=== PATIENT | male | born 1940 | race Caucasian/White ===

== ENCOUNTER 2025-03-09 09:31 | Outpatient (AMB) | payer MEDICARE, OTHER, SELFPAY ==
--- NOTE | 2025-03-09 09:43 | MHC.OFFVIS ---
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 No new issues. He is presenting with management concerns for depression and anxiety, potentially linked to cognitive impairment. He reports persistent memory issues, forgetfulness, pervasive tiredness, and a lack of energy, spending most of his time watching television. He has not been partaking in regular physical activities except for using a pedal hardwood flooring specialist. The patient describes feelings of depression, characterized by a low mood and reduced interest in previous activities, alongside episodes of anxiety, including feelings of fear without a specified trigger. He denies any new problems with sleep or physical health issues and confirms the absence of any new wounds. The patient's current medication regimen includes sertraline for mood and anxiety stabilization. [facility] Medical History (Updated 03/09/25 @ 09:49 by Perez Anderson MD) Afib Skin cancer Review of Systems Narrative - General: Reports tiredness and lack of energy. - Psychiatric: Reports depression, forgetfulness, anxiety, and fearfulness. - Neurological: Reports memory loss and forgetting things. - Musculoskeletal: Denies engagement in regular walking routines. ? Physical Exam Neuro Other: Mental Status: Alert and oriented to person, place, and time. Normal attention. Normal spontaneous speech, fluency, and comprehension. Cranial Nerves: CN II: Visual frankel full to confrontation, visual acuity intact. CN III, IV, : Pupils equal, round, reactive to light and accommodation. Extraocular movements are normal. CN V: Facial sensation is normal. CN VII: Facial movements symmetrical. CN VIII: Hearing intact to bedside conversation is normal. CN IX, X: Palate elevates symmetrically. CN XI: Shoulder shrug and head turn symmetrical. CN XII: Tongue midline without atrophy or fasciculations. Extrapyramidal: Full facial expressions and blinking. No rigidity. Movements are appropriate with no tremor or abnormality. Speech: Normal; no dysarthria or tremor. Assessment & Plan Assessment & Plan (1) Multifactorial dementia: Comment: MRI brain WO at [facility] in 2022: Mod diff atrophy. Code(s): F03.90 - Unspecified dementia, unspecified severity, without behavioral disturbance, psychotic disturbance, mood disturbance, and anxiety Category: Medical (2) Alzheimer dementia: Code(s): G30.9 - Alzheimer's disease, unspecified; F02.80 - Dementia in other diseases classified elsewhere, unspecified severity, without behavioral disturbance, psychotic disturbance, mood disturbance, and anxiety Category: Medical Qualifiers: Alzheimer's disease onset: late onset Dementia severity: moderate Dementia behavioral or psychological symptom: with mood disturbance Qualified Code(s): G30.1 - Alzheimer's disease with late onset; F02.B3 - Dementia in other diseases classified elsewhere, moderate, with mood disturbance Plan Impression: Multifactorial (Alzheimer +alcoholic) dementia Recommendations: 1. Donepezil 10 mg a day 2. Memantine 10 mg twice a day 3. Sertraline 25mg one in am During the consultation, I explained the rationale for initiating sertraline, focusing on its benefits in managing depression and anxiety symptoms. We discussed potential side effects, including those typical with SSRIs, and planned regular follow-up visits to monitor mood, anxiety levels, and cognitive state. I acknowledged the absence of a specific treatment for cognitive impairment but emphasized the potential benefits of mood stabilization on cognitive function. I outlined a two-month follow-up to evaluate the response to sertraline and adjust the strategy if necessary. 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
--- OUTSIDE RECORDS SUMMARY | 2025-03-09 10:43 | XMS_ITS | Clinical Summary ---
Author Organization [facility] Address [address] [place] [address] Phone Care Team Providers Care Ecology Teacher Name Role Phone Linette Doherty MD Primary Care Prov ider Allergies Active Allergy Reactions Criticality Noted Date Comments Sony Inhibitors 12/01/2008 Nsaids (Non-Steroidal Anti-Inflammatory Drug) 10/16/2024 [id number]-[id number]-[id number] Reductase Inhibitors High 09/17/2018 Other Reaction(s): RASH ALL OVER BODY/difficulty walking Medications acitretin (SORIATANE) 10 mg capsule Take 1 capsule (10 mg total) by mouth. Take 1 Capsule by mouth every morning (before breakfast). Active cetirizine (ZyrTEC) 10 mg tablet Take 1 tablet (10 mg total) by mouth 1 (one) time each day. Active cycloSPORINE (RESTASIS) 0.05 % ophthalmic emulsion 1 drop 2 (two) times a day. Active fluticasone propionate (FLONASE) 50 mcg/actuation nasal spray Administer 1 spray into each nostril 1 (one) time each day. Active leuprolide (leuprolide acetate) 45 mg syringe Inject 45 mg under the skin. Active allopurinoL (ZYLOPRIM) 300 mg tablet Take 1 tablet (300 mg total) by mouth 1 (one) time each day. 90 each 3 04/23/20 24 025 Active memantine (NAMENDA) 10 mg tablet Take 1 tablet (10 mg total) by mouth 2 (two) times a day. Active donepeziL (ARICEPT) 10 mg tablet Take 1 tablet (10 mg total) by mouth at bedtime. Active apixaban (ELIQUIS) 5 mg tablet Take 1 tablet (5 mg total) by mouth every 12 (twelve) hours. 180 each 3 06/16/19 25 026 Active ezetimibe (ZETIA) 10 mg tablet TAKE 1 TABLET BY MOUTH EVERY DAY 90 tablet 1 10/16/19 25 Active UNABLE TO FIND every 6 (six) months. Elegard injection 025 Discontinued Hospital, Clinic, or Other Facility Administered Medication Ordered Dose Route Frequency Start Date End Date Status cyanocobalamin (VITAMIN B-12) injection 1,000 mcgIndications:B12 deficiency 1000 mcg IM Every 30 days 10/06/2024 04/04/2025 Active Active Problems Problem Noted Date Diagnosed Date Mixed hyperlipidemia 12/15/2024 Assessment & Plan (12/15/2024 9:14 AM EDT): Last LDL was 76. He is currently on Zetia, he has allergy to statins. Will continue same medication. Encouraged to follow a low-fat diet and exercise regularly. Pending lab results from today. B12 deficiency 12/15/2024 Assessment & Plan (12/15/2024 9:14 AM EDT): Comes for B12 injections every 4 weeks. Will continue same medication. Pending lab results from today. Malignant melanoma of torso excluding breast ([facility]/HCC V24, CMS/HCC V28) 04/01/2024 Assessment & Plan (06/16/2024 11:35 AM EST): Patient follows regularly with dermatology, no new lesions. Prostate cancer (CMS/HCC V24, CMS/HCC V28) 01/03 Assessment & Plan (06/16/2024 11:35 AM EST): Follows by oncology regularly. Encouraged to keep the appointments with the specialist. PSA has been stable. Atrial flutter (CMS/HCC V24, CMS/HCC V28) 2022 Assessment & Plan (12/15/2024 9:07 AM EDT): Currenly regular. No chest pain, palpitations, shortness of breath or dizziness. Follows with cardio. Encouraged to continue Apixaban. Assessment & Plan (06/16/2024 11:35 AM EST): Currenly regular. No chest pain, palpitations, shortness of breath or dizziness. Follows with cardio. Encouraged to continue Apixaban. 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 Weight loss 03/17/2020 Carpal tunnel syndrome of right wrist 09/17/2018 Cervical radiculopathy at C5 09/17/2018 Elevated PSA 03/26/2018 Abdominal lymphadenopathy 12/27/2017 Encounters Date Type Department Care Team Description 03/02/2025 10:45 AM EDT Office Visit [facility] Hematology Oncology [address] [place] [phone] Delmy Marshall MD Prostate cancer (CMS/HCC V24, CMS/HCC V28) (Primary Dx); Malignant melanoma of torso excluding breast (CMS/HCC V24, CMS/HCC V28) 02/25/2025 10:00 AM EDT Clinical Support Adult Medicine [address] [phone] B12 deficiency (Primary Dx) 02/05/2025 8:30 AM EDT Procedure visit [facility] Surgery [address] [phone] Ihsan Maldonado MD SCC (squamous cell carcinoma), trunk (Primary Dx) 01/28/2025 10:00 AM EDT Clinical Support Adult Medicine [address] [phone] B12 deficiency (Primary Dx) 01/27/2025 11:00 AM EDT Consult General Surgery [address] [phone] Ihsan Maldonado MD SCC (squamous cell carcinoma), trunk 12/31/2024 9:45 AM EDT Clinical Support Adult [address] [phone] B12 deficiency (Primary Dx) 12/15/2024 9:00 AM EDT Office Visit Adult [address] [phone] Linette Doherty MD Atrial flutter, unspecified type (CMS/HCC V24, CMS/HCC V28) (Primary Dx); Mixed hyperlipidemia; B12 deficiency from Last 3 Months Immunizations Immunization Administration Dates Next Due Hepatitis A-Hepatitis B Adul t (Twinrix) 18yo and older 08/18/2024 Celly SARS-CoV-2 COVID-19, mRNA, LNP-S, preservative free 02/18/2023,09/20/2021,01/03/2021,2020,06/21/2020 Surgical History Surgery Date Site/Laterality Comments PROSTATE SURGERY PROCEDURE: HISTORICAL PROSTATE SURGERY TOTAL KNEE ARTHROPLASTY PROCEDURE: NM ARTHRP KNE CONDYLE&PLATU MEDIAL&LAT COMPARTMENTS TOTAL KNEE ARTHROPLASTY 05/21/2014 - 05/20/2015 Bilateral Medical History Medical History Date Comments Adenocarcinoma of prostate ( CMS/HCC V24, CMS/HCC V28) 12/06/2017 DX:Adenocarcinoma of prostat e (HCC); COMMENT: S/p prostate surgery Atrial flutter (CMS/HCC V24, CMS/HCC V28) 04/04/2017 DX:Atrial flutter (HCC); COM MENT: S/p AV node ablation Constipation 04/12/2016 DX:Constipation Dupuytren's contracture 04/12/2016 DX:Juan tren's contracture GERD (gastroesophageal reflux disease) 12/06/2017 DX:GERD (gastroesophageal reflux disease) Gout 12/06/2017 DX:Gout History of basal cell carcinoma of skin 6 DX:History of basal cell carcinoma of skin Hyperlipidemia 12/06/2017 DX:Hyperlipidemi a Hypertension 12/06/2017 DX:Hypertension Thrombocytopenia (CMS/HCC V24) 11/29/2016 D X:Thrombocytopenia (HCC) Tubular adenoma 04/04/2017 DX:Tubular adeno ma Dementia (CMS/HCC V24, CMS/HCC V28) Family History Medical History Relation Name Comments Other: Hodgkins Father Colon cancer Mother Relation Name Status Comments Father Mother Social History Tobacco Use Types Packs/Day Years Used Date Smoking Tobacco: Former Smokeless Tobacco: Never Tobacco Cessation:Counseling Given: Not Answered Alcohol Use Standard Drinks/Week Comments Yes 0 (1 standard drink = 0.6 oz pur e alcohol) Housing Instability Answer Date Recorde d Are you worried that in the next 2 months you may not have stable housing? No 06/13/2024 Food Access & Nutrition Answer Date Rec orded Do you have access to a vari ety of food including fruits and vegetables? Yes 06/13/2024 Access to Healthcare Answer Date Record ed Within the last 3 months, ho w many times did you visit the emergency department for your medical care? 0 06/13/2024 Health Literacy Answer Date Recorded How often do you need to hav e someone help you when you read instructions, pamphlets, or other written material from your doctor or pharmacy? Rarely 06/13/2024 Caregiver: How often do you need to have someone help you when you read instructions, pamphlets, or other written material from your doctor or pharmacy? Not on file 06/13/2024 Financial Risk Answer Date Recorded How hard is it for you to pa y for the very basics like food, housing, medical care, and air conditioning / heating? Not very hard 06/13/2024 Transportation Answer Date Recorded Has the lack of transportati on kept you from meetings, work, or from getting things needed for daily living? No Has the lack of transportati on kept you from medical appointments or from getting medications? No 06/13/2024 Social Isolation Answer Date Recorded How often do you feel lonely or isolated from th ose around you? Never 06/13/2024 Food Risk Answer Date Recorded Within the past 12 months we worried whether our food would run out before we got money to buy more. Never true 06/13/2024 Within the past 12 months th e food we bought just didn't last and we didn't have money to get more. Never true 06/13/2024 Dependent Care Answer Date Recorded Do you need help finding or paying for care for your loved ones. For example, child daycare worker or elderly care for an older adult? No 06/13/2024 Education Answer Date Recorded Do you think completing more education or training, like finishing a GED, going to college, or learning a trade, would be helpful for you? No 06/13/2024 Employment and Income Answer Date Recor ded During the last four weeks, have you been actively looking for work? No 06/13/2024 Living Situation Answer Date Recorded What is your living situation? Unrecognized valu e 06/13/2024 Sex and Gender Information Value Date Recorded Sex Assigned at Not on file Legal Sex Male 10:24 AM EST Gender Identity Not on file Sexual Orientation Straight 04/06/2024 10 :20 AM EST Obstetrics History Last Filed Vital Signs Vital Sign Reading Time Taken Comments Blood Pressure 112/72 03/02/2025 10:54 AM EDT Pulse 64 03/02/2025 10:54 AM EDT Temperature 37 C (98.6 F) 03/02/2025 10:54 AM EDT Respiratory Rate 15 06/16/2024 11:01 AM EST Oxygen Saturation 100% 03/02/2025 10:54 AM EDT Inhaled Oxygen Concentration - - Weight 102 kg (224 lb) 03/02/2025 10:54 AM EDT Height 188 cm (6' 2 ) 03/02/2025 10:54 AM EDT Body Mass Index 28.76 03/02/2025 10:54 AM EDT Plan of Treatment Upcoming Encounters Date Type Department Care Team (Late st Contact Info) Description 03/25/2025 10:30 AM EST Clinical Support Adult Medicine [address] [phone] 04/22/2025 9:00 AM EST Office Visit Adult [address] [phone] Linette Doherty MD [address] [place] [address] 04/22/2025 10:30 AM EST Clinical Support Adult Medicine [address] [phone] 08/31/2025 10:30 AM EDT Office Visit [facility] Hematology Oncology [address] [place] [phone] Delmy Marshall MD [address] [place] [phone] Health Maintenance Due Date Last Done Comments Zoster Vaccines (1 of 2) 01/28/1959 RSV Immunization Adult Patients (1 - 1-dose 75+ series) 01/28/2015 Skin Cancer Screening 10/26/2024 COVID-19 Vaccine (8 - Pfizer risk 2023- season) 2025 02/23/2024, 02/18/2023, 04/05/2022, Additional history exists Influenza Vaccine (#1) 2025 , 02/18/2023, 03/07/2022, Additional history exists Social Influencers of Health Screening 06/13/2025 06/13/2024 Falls Risk Assessment 06/16/2025 06/16/2024 Medicare Annual Wellness Visit 06/16/2025 06/16/2024 Hypertension/CHF/CAD Annual BMP Blood Test 12/15/2025 12/15/2024, 11/21/2023 Cholesterol Screening (Lipid Panel) 11/20/2028 11/21/2023 DTaP,Tdap,and Td Vaccines (2 - Td or Tdap) 11/17/2030 11/17/2020 Pneumococcal Vaccine: 50+ Years Completed 05/19/2020, 03/17/2016, 09/17/2014 Depression Screening Completed 07/29/2024 Hepatitis A Vaccines Completed 08/18/2024, 03/17/2024, 02/15/2024 Hepatitis B Vaccines Completed 08/18/2024, 03/17/2024, 02/15/2024 HIB Vaccines Aged Out No longer eligi ble based on patient's age to complete this topic HPV Vaccines Aged Out No longer eligi ble based on patient's age to complete this topic IPV Vaccines Aged Out No longer eligi ble based on patient's age to complete this topic MMR Vaccines Aged Out No longer eligi ble based on patient's age to complete this topic Meningococcal ACWY Vaccine Aged Out N o longer eligible based on patient's age to complete this topic Meningococcal B Vaccine Aged Out No l onger eligible based on patient's age to complete this topic RSV Immunization Patients Under 20 months Aged Out No longer eligible based on patient's age to complete this topic Varicella Vaccines Aged Out No longer eligible based on patient's age to complete this topic Procedures Procedure Name Priority Date/Time Associated Diagnosis Comments TISSUE EXAM Routine 02/05/2025 8:40 AM EDT SCC (squamous cell carcinoma), trunk PROSTATE SPECIFIC ANTIGEN DIAGNOSTIC Routine 01/28/2025 9:36 AM EDT Prostate cancer (CMS/HCC V24, CMS/HCC V28) CBC WITH AUTO DIFFERENTIAL Routine 12/15/2024 8:30 AM EDT Atrial flutter, unspecified type (CMS/HCC V24, CMS/HCC V28) Mixed hyperlipidemia COMPREHENSIVE METABOLIC PANEL Routine 12/15/2024 8:30 AM EDT Atrial flutter, unspecified type (CMS/HCC V24, CMS/HCC V28) Mixed hyperlipidemia CBC AND DIFFERENTIAL Routine 12/15/2024 8:30 AM EDT Atrial flutter, unspecified type (CMS/HCC V24, CMS/HCC V28) Mixed hyperlipidemia VITAMIN B12 Routine 12/15/2024 8:30 AM EDT B12 deficiency from Last 3 Months Results * Tissue Exam (02/05/2025 8:40 AM EDT) Final Diagnosis A. Skin, Left Lateral Mid Back-excision: -FOCAL RESIDUAL SQUAMOUS CELL CARCINOMA, WELL DIFFERENTIATED , INVASIVE, ASSOCIATED WITH BIOPSY SITE SCAR -Margins negative B. Skin, Back, Upper, Left Upper Lateral Back-excision: -CICATRIX, CONSISTENT WITH BIOPSY SITE SCAR -Negative for residual neoplasm 02/09/2025 4:16 PM EDT [facility] Clinical Information SCC (squamous cell carcinoma), trunk C44.529 [id number]) Left Lateral Mid Back SCC, Orientation vertical, ink @ 12 o'clock B) Left Upper Lateral Back SCC, Orientation vertical, ink @ 12 o'clock 02/09/2025 4:16 PM [facility] Gross Description A. Other, Left Lateral Mid Back SCC Orientation vertical, ink @ 12 o'clock: Labeled A.1 other . Received in formalin is a 1.8 x 1.3 cm oriented gutierrez-white skin ellipse excised to depth of 0.9 cm. There is blue ink on one tip designating 12:00 per the requisition. The epidermis displays a 0.9 x 0.6 cm red-brown crusted lesion, located 0.2 cm from the closest (9:00) margin. The 9-3-6 o'clock margin is inked blue, the 6-9-12 o'clock margin is inked black, and the epidermis of the 12:00 tip is inked green. The specimen is serially sectioned and entirely submitted in three cassettes, with the oriented 12:00 and 6:00 en face tips in cassette one (12:00 epidermis inked green), two pieces each B. Back, Upper, Left Upper Lateral Back SCC Orientation vertical, ink @ 12 o'clock: Labeled back U . Received in formalin is a 1.7 x 0.8 cm oriented gutierrez-white skin ellipse excised to a depth of 0.6 cm. There is blue ink on one tip designating 12:00 per the requisition. The epidermis displays a 0.3 x 0.3 cm red-brown crust, located 0.2 cm from the closest (3:00) margin. The 12-3-6 o'clock margin is inked blue, the 6-9-12 o'clock margin is inked black, and the epidermis of the 12:00 tip is inked emily. The specimen is serially sectioned and entirely submitted in three cassettes, with the oriented 12:00 and 6:00 en face tips in cassette one, two pieces each SHADI 02/09/2025 4:16 PM [facility] Disclaimer Unless otherwise specified, all tissue is 10% NB formalin fixed and paraffin embedded. 02/09/2025 4:[address] [facility] Tissue Structure of upper back / Unknown Non-blood Collection / Unknown 02/05/2025 8:40 AM EDT 02/05/2025 8:45 AM EDT Comment:[id number]) Left L ateral Mid Back SCC, Orientation vertical, ink @ 12 o'clockB) Left Upper Lateral Back SCC, Orientation vertical, ink @ 12 o'clock Tissue specimen (specimen) Structure of upper back / Unknown 02/05/2025 8:40 AM EDT 02/05/2025 8:45 AM EDT Comment:[id number]) Left L ateral Mid Back SCC, Orientation vertical, ink @ 12 o'clockB) Left Upper Lateral Back SCC, Orientation vertical, ink @ 12 o'clock Ihsan Maldonado MD LAB PATHOLOGY ORDERABLES Fi nal Result Performing Organization Address [facility] Co de Phone Number [facility] [address] [place] [address], * Prostate specific antigen diagnostic (01/28/2025 9:36 AM EDT) PSA <0.06 0.00 - 4.00 ng/mL LAB CHEMISTRY METHOD 01/28/2025 12:[address] [facility] Blood Venous blood specimen / Unknown Venipuncture / Unknown 01/28/2025 9:36 AM EDT 01/28/2025 9:[address] [facility] - 01/28/2025 12:31 PM EDT The Siemens Advia Centaur Chemiluminescent Immunoassay is used. Results obtained with different assay methods or kits cannot be used interchangeably. Results cannot be interpreted as absolute evidence of the presence or absence of malignant disease. Delmy Marshall MD LAB BLOOD ORDERABLE S Final Result Performing Organization Address [facility]/ZIP Co de Phone Number [facility] [address] [place] [address], * (ABNORMAL) CBC auto differential (12/15/2024 8:30 AM EDT) [facility] WBC 7.6 4.8 - 10.8 K/mcL LAB HEMETOLOGY METHOD 12/15/2024 11:30 AM [facility] RBC 4.40(L) 4.50 - 5.50 M/mcL LAB HEMETOLOGY METHOD [facility]24 [facility] Hemoglobin 13.3(L) 13.5 - 17.5 g/dL LAB HEMETOLOGY METHOD 12/15/2024 11:30 AM [facility] Hematocrit 41.7(L) 42.0 - 54.0 % LAB HEMETOLOGY METHOD 12/15/2024 11:30 AM [facility] MCV 95.6 79.0 - 98.0 FL LAB HEMETOLOGY METHOD 12/15/2024 11:30 AM [facility] MCH 30.5 27.0 - 32.0 pcg LAB HEMETOLOGY METHOD 12/15/2024 11:30 AM [facility] MCHC 31.9(L) 32.0 - 37.0 g/dL LAB HEMETOLOGY METHOD 12/15/2024 11:30 AM [facility] RDW 14.2 11.0 - 15.0 % LAB HEMETOLOGY METHOD 12/15/2024 11:30 AM [facility] Platelets 88(L) 130 - 400 K/mcL LAB HEMETOLOGY METHOD 12/15/2024 11:30 AM [facility] Comment:reviewed by slide MPV 11.9(H) 7.0 - 11.0 FL LAB HEMETOLOGY METHOD 12/15/2024 11:30 AM [facility] NRBC 0.0 <1.0 % LAB HEMETOLOGY METHOD 12/15/2024 11:30 AM [facility] NRBC Absolute 0.00 <0.10 K/mcL LAB HEMETOLOGY METHOD 12/15/2024 11:30 AM [facility] Neutrophils Relative 73.5 % LAB HEMETOLOGY METHOD 12/15/2024 11:30 AM [facility] Lymphocytes Relative 17.9 % LAB HEMETOLOGY METHOD 12/15/2024 11:30 AM [facility] Monocytes Relative 7.4 % LAB HEMETOLOGY METHOD 12/15/2024 11:30 AM [facility] Eosinophils Relative 0.4 % LAB HEMETOLOGY METHOD 12/15/2024 11:30 AM [facility] Basophils Relative 0.3 % LAB HEMETOLOGY METHOD 12/15/2024 11:30 AM [facility] Immature Granulocytes Relative 0.5 % LAB HEMETOLOGY METHOD 12/15/2024 11:30 AM [facility] Neutrophils Absolute 5.60 1.50 - 7.00 K/mcL LAB HEMETOLOGY METHOD 12/15/2024 11:30 AM [facility] Lymphocytes Absolute 1.36 1.00 - 5.00 K/mcL LAB HEMETOLOGY METHOD 12/15/2024 11:30 AM [facility] Monocytes Absolute 0.56 0.20 - 1.00 K/mcL LAB HEMETOLOGY METHOD 12/15/2024 11:30 AM [facility] Eosinophils Absolute 0.03 0.00 - 0.50 K/mcL LAB HEMETOLOGY METHOD 12/15/2024 11:30 AM [facility] Basophils Absolute 0.02 0.00 - 0.20 K/mcL LAB HEMETOLOGY METHOD 12/15/2024 11:30 AM [facility] Immature Granulocytes Absolute 0.04(H) 0.00 - 0.03 K/mcL LAB HEMETOLOGY METHOD 12/15/2024 11:[address] [facility] Blood Venous blood specimen / Unknown Venipuncture / Unknown 12/15/2024 8:30 AM EDT 12/15/2024 8:31 AM EDT Linette Doherty MD LAB BLOOD ORDERABL ES Final Result Performing Organization Address [facility]/ZIP Co de Phone Number [facility] [address] [place] [address], [place] [phone] * Vitamin B12 (12/15/2024 8:30 AM EDT) Vitamin B-12 728 250 - 900 pcg/mL LAB CHEMISTRY METHOD 12/15/2024 12:[address] [facility] Blood Venous blood specimen / Unknown Venipuncture / Unknown 12/15/2024 8:30 AM EDT 12/15/2024 8:31 AM EDT Linette Doherty MD LAB BLOOD ORDERABL ES Final Result Performing Organization Address [facility]/ZIP Co de Phone Number [facility] [address] [place] [address], [place] [phone] * (ABNORMAL) Comprehensive metabolic panel (12/15/2024 8:30 AM EDT) Sodium 141 133 - 145 mmol/L LAB CHEMISTRY METHOD 12/15/2024 12:[address] [facility] Potassium 3.8 3.5 - 5.5 mmol/L LAB CHEMISTRY METHOD 12/15/2024 12:[address] [facility] Chloride 110 96 - 110 mmol/L LAB CHEMISTRY METHOD 12/15/2024 12:[address] [facility] CO2 28 21 - 32 mmol/L LAB CHEMISTRY METHOD 12/15/2024 12:08 PM [facility] Anion Gap 3 3 - 11 LAB CHEMISTRY METHOD 12/15/2024 12:08 PM [facility] Glucose 102(H) 70 - 100 mg/dL LAB CHEMISTRY METHOD 12/15/2024 12:08 PM [facility] BUN 14 5 - 25 mg/dL LAB CHEMISTRY METHOD 12/15/2024 12:08 PM [facility] Creatinine 1.13 0.70 - 1.30 mg/dL LAB CHEMISTRY METHOD 12/15/2024 12:08 PM [facility] eGFR 64 >=60 mL/min/1. 73m2 LAB CHEMISTRY METHOD 12/15/2024 12:08 PM [facility] Comment:Calculation based on the Chronic Kidney Disease Epidemiology Collaboration (CKD-EPI) equation refit without adjustment for race. BUN/Creatinine Ratio 12.4 LAB CHEMISTRY METHOD 12/15/2024 12:08 PM [facility] Calcium 8.6 8.5 - 10.5 mg/dL LAB CHEMISTRY METHOD 12/15/2024 12:08 [facility] AST (SGOT) 13 10 - 42 unit/L LAB CHEMISTRY METHOD 12/15/2024 12:08 [facility] ALT (SGPT) 11 10 - 60 unit/L LAB CHEMISTRY METHOD 12/15/2024 12:08 PM [facility] Alkaline Phosphatase 69 42 - 121 unit/L LAB CHEMISTRY METHOD 12/15/2024 12:08 PM [facility] Total Protein 5.7(L) 6.0 - 8.0 g/dL LAB CHEMISTRY METHOD 12/15/2024 12:08 PM [facility] Albumin 3.0(L) 3.2 - 5.0 g/dL LAB CHEMISTRY METHOD 12/15/2024 12:[address] [facility] Total Bilirubin 0.6 0.0 - 1.4 mg/dL LAB CHEMISTRY METHOD 12/15/2024 12:[address] [facility] Blood Venous blood specimen / Unknown Venipuncture / Unknown 12/15/2024 8:30 AM EDT 12/15/2024 8:31 AM EDT us Linette Doherty MD LAB BLOOD ORDERABL ES Final Result [facility] [address] [place] [address], from Last 3 Months Insurance MEDICARE [facility] Care Teams Ecology Teacher Relationship Specialty Start Date End Date Linette Doherty MD [address] [place] [address] PCP - General Internal Medicine 03/19/24
--- OUTSIDE RECORDS SUMMARY | 2025-03-09 10:43 | XMS_ITS | Clinical Summary ---
Author Organization [facility] Address [address] [place] [address] Care Team Providers Care Copyright Manager Name Role Phone Linette Gao MD Primary Care Prov ider Allergies Active Allergy Reactions Criticality Noted Date Comments Statins 09/17/2018 Medications Medication Sig Dispensed Refills Start Date End Date Status allopurinol (ZYLOPRIM) 100 MG tablet Take 1 tablet (100 mg total) by mouth daily. 0 Active ezetimibe (ZETIA) tablet 10 mg Take 1 tablet (10 mg total) by mouth daily. 0 Active Naproxen Sodium (ALEVE PO) Take 1 tablet by mouth daily. 0 Active cetirizine (ZyrTEC) 10 MG tablet Take 1 tablet (10 mg total) by mouth daily. 0 Active acitretin (SORIATANE) 10 MG capsule Take 1 capsule (10 mg total) by mouth every morning before breakfast. 0 Active donepezil (ARICEPT) 5 MG tablet Take 1 tablet (5 mg total) by mouth every night at bedtime. TAKES 2 - 5 MG TABLETS EVERY NIGHT 0 Active apixaban (ELIQUIS) 5 MG TABS tablet Take by mouth every 12 (twelve) hours. 0 Active B Complex Vitamins (B COMPLEX PO) Take by mouth. 0 Active fluticasone (FLONASE) 50 MCG/ACT nasal spray spray/apply 1 spray in each nostril daily. 0 Active cycloSPORINE (RESTASIS) 0.05 % ophthalmic emulsion 1 drop 2 (two) times a day. 0 Active erythromycin (ROMYCIN) ophthalmic ointment every night at bedtime. 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 Weight loss 03/17/2020 Cervical radiculopathy at C5 09/17/2018 Carpal tunnel syndrome of right wrist 09/17/2018 Elevated PSA 03/26/2018 Prostate cancer 12/27/2017 Abdominal lymphadenopathy 12/27/2017 Social History Tobacco Use Types Packs/Day Years Used Date Smoking Tobacco: Never Assessed Sex and Gender Information Value Date Recorded Sex Assigned at Not on file Gender Identity Not on file Sexual Orientation Not on file Job Start Date Occupation Industry Not on file Not on file Not on file Last Filed Vital Signs Vital Sign Reading Time Taken Comments Blood Pressure 113/63 03/27/2023 10:25 AM EST Pulse 65 03/27/2023 10:25 AM EST Temperature 36.2 C (97.2 F) 03/27/2023 10:25 AM EST Respiratory Rate - - Oxygen Saturation 100% 03/27/2023 10: 25 AM EST Inhaled Oxygen Concentration - - Weight 98.3 kg (216 lb 12.8 oz) 023 10:25 AM EST Height 182.9 cm (6') 03/16/2022 9:06 AM EDT Body Mass Index 29.4 03/16/2022 9:06 AM EDT Plan of Treatment Health Maintenance Due Date Last Done Comments Depression Screening 1952 Preventative Health Evaluation 01/28/1958 DTap / Tdap / Td (1 - Tdap) 01/28/1959 Shingrix-Zoster Vaccine (1 of 2) 01/28/1959 Fall Risk Assessment 01/28/2005 RSV Adult > 60+ Yrs or (1 - 1-dose 75+ series) 01/28/2015 COVID-19 Vaccine ( season) 2025 02/18/2023, 09/20/2021, 01/03/2021, Additional history exists Influenza Vaccine (#1) 2025 , 03/07/2022, 02/22/2021, Additional history exists Pneumococcal Vaccine Completed 05/19/2020, 03/17/2016, 09/17/2014 Hepatitis B Vaccines Aged Out No long er eligible based on patient's age to complete this topic RSV Ped < 20 months Aged Out No longe r eligible based on patient's age to complete this topic Care Teams Copyright Manager Relationship Specialty Start Date End Date Linette Gao MD [address] [place] [address] PCP - General Internal Medicine 03/16/22
--- OUTSIDE RECORDS SUMMARY | 2025-03-09 10:43 | XMS_ITS | Encounter Summary ---
Author Organization [facility] Address [address] [place] [address] Care Team Providers Care Temp Recruiter Name Role Phone Linette Doherty MD Primary Care Prov ider Encounter Details Date Type Department Care Team (Late st Contact Info) Description 05/02/2024 Lab Requisition [facility] - Main Lab [address] [place] [phone] Elizabeth Alarcon NP [address] [facility] [address] [place] [address] Malignant neoplasm of prostate (CMS/HCC V24, CMS/HCC V28) Social History Tobacco Use Types Packs/Day Years Used Date Smoking Tobacco: Former Smokeless Tobacco: Never Alcohol Use Standard Drinks/Week Comments Yes 0 (1 standard drink = 0.6 oz pur e alcohol) Sex and Gender Information Value Date Recorded Sex Assigned at Not on file Legal Sex Male 10:24 AM EST Gender Identity Not on file Sexual Orientation Straight 04/06/2024 10 :20 AM EST documented as of this encounter Plan of Treatment Upcoming Encounters Date Type Department Care Team (Late Contact Info) Description 03/25/2025 10:30 AM EST Clinical Support Adult Medicine [address] [phone] 04/22/2025 9:00 AM EST Office Visit [address] [phone] Linette Doherty MD [address] [place], [place] 04/22/2025 10:30 AM EST Clinical Support [address] [phone] 08/31/2025 10:30 AM EDT Office Visit [facility] Hematology Oncology [address] [place] [phone] Delmy Marshall MD [address] [place] [phone] documented as of this encounter Procedures Procedure Name Priority Date/Time Associated Diagnosis Comments PROSTATE SPECIFIC ANTIGEN DIAGNOSTIC Routine 05/02/2024 9:54 AM EST Malignant neoplasm of prostate (CMS/HCC) documented in this encounter Results * Prostate specific antigen diagnostic (05/02/2024 9:54 AM EST) PSA <0.06 0.00 - 4.00 ng/mL LAB CHEMISTRY METHOD 05/02/2024 3:12 PM EST [facility] Blood Venous blood specimen / Unknown 05/02/2024 9:54 AM EST 05/02/2024 1:50 PM EST Narrative [facility] - 05/02/2024 3:12 PM EST The Siemens Advia Centaur Chemiluminescent Immunoassay is used. Results obtained with different assay methods or kits cannot be used interchangeably. Results cannot be interpreted as absolute evidence of the presence or absence of malignant disease. us Elizabeth Alarcon NP LAB BLOOD ORDERABLES Final R esult [facility] [address] [place], [place] [address] [phone] documented in this encounter Visit Diagnoses Diagnosis Malignant neoplasm of prostate (CMS/HCC V24, CMS/HCC V28) Malignant neoplasm of prostate documented in this encounter Care Teams Temp Recruiter Relationship Specialty Start Date End Date Linette Doherty MD [address] [place] [phone] PCP - General Internal Medicine 03/19/24 documented as of this encounter
--- OUTSIDE RECORDS SUMMARY | 2025-03-09 10:44 | XMS_ITS ---
Author Name [facility] Organization Unknown Care Team Organization Name Specialty Phone Email Start Date End Da te [facility] 01/07/2025 [facility] Linette Gao Primary Care 01/25/2023 01/07/2024 [facility] Yazmin Hooks Primary Care 10/27/20222023 [facility] Beatriz, LILIANA Primary Care 03/28/202212/19
== END 2025-03-09 09:51 | disposition home or self-care (01) ==
LOC: HO.HSM 09:32
PROVIDERS: PCP Internal Medicine; Referring Provider Internal Medicine; Visit Provider Psychiatry & Neurology Neurology
DX: F03.90 Unspecified dementia, unspecified severity, without behavioral disturbance, psychotic disturbance, mood disturbance, and anxiety (principal); G30.1 Alzheimer's disease with late onset; F02.B3 Dementia in other diseases classified elsewhere, moderate, with mood disturbance
CPT/HCPCS: 99214

== ENCOUNTER → 2025-03-09 09:31 | Outpatient (BNVA) | payer MEDICARE, OTHER, SELFPAY | PROVIDERS: PCP Internal Medicine; Referring Provider Internal Medicine; Visit Provider Psychiatry & Neurology Neurology | DX: G30.1 Alzheimer's disease with late onset (principal); F02.B3 Dementia in other diseases classified elsewhere, moderate, with mood disturbance | CPT/HCPCS: 99212 ==

== ENCOUNTER 2025-05-18 09:46 | Outpatient (REF) | payer MEDICARE, OTHER, SELFPAY ==
[2025-05-18 12:59] LABS: Folate 4.3 ng/mL (> or = 4.0); Vitamin B12 496 pg/mL (200-900)
== END 2025-05-18 09:47 | disposition home or self-care (01) ==
LOC: HO.LAB 09:46
PROVIDERS: PCP Internal Medicine; Visit Provider Psychiatry & Neurology Neurology
DX: G62.1 Alcoholic polyneuropathy (principal); F02.B3 Dementia in other diseases classified elsewhere, moderate, with mood disturbance; G30.1 Alzheimer's disease with late onset; Z79.899 Other long term (current) drug therapy
CPT/HCPCS: 36415; 82550; 82607; 82746; 82784; 86334; 99212

== ENCOUNTER 2025-05-18 09:46 | Outpatient (AMB) | payer MEDICARE, OTHER, SELFPAY ==
--- NOTE | 2025-05-18 10:27 | MHC.OFFVIS ---
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 She is presenting for evaluation of neuropathy. He experiences numbness in his hands. He reports feeling sad for a long time and takes sertraline 50 mg daily. The patient has difficulty with mobility and does not walk much, leading to leg weakness. His caregiver utilizes a leg pension administrator to help strengthen his legs. He also takes levetiracetam and donepezil. He has difficulty getting to sleep but reports that once asleep, he sleeps well. He does not have a history of diabetes. [facility] Medical History (Updated 05/18/25 @ 10:33 by Perez Anderson MD) Afib Skin cancer Review of Systems Narrative - Neurological: Reports numbness in his hands. - Psychiatric: Reports feeling sad. - Musculoskeletal: Reports leg weakness. - Constitutional: Reports difficulty initiating sleep. - Endocrine: Denies history of diabetes. Physical Exam Neuro Other: Mental Status: Alert and oriented to person, place, and time. Normal attention. Normal spontaneous speech, fluency, and comprehension. Cranial Nerves: CN II: Visual frankel full to confrontation, visual acuity intact. CN III, IV, : Pupils equal, round, reactive to light and accommodation. Extraocular movements are normal. CN V: Facial sensation is normal. CN VII: Facial movements symmetrical. CN VIII: Hearing intact to bedside conversation is normal. CN IX, X: Palate elevates symmetrically. CN XI: Shoulder shrug and head turn symmetrical. CN XII: Tongue midline without atrophy or fasciculations. Extrapyramidal: Full facial expressions and blinking. No rigidity. Movements are appropriate with no tremor or abnormality. Speech: Normal; no dysarthria or tremor. Assessment & Plan Assessment & Plan (1) Multifactorial dementia: Comment: MRI brain WO at [facility] in 2022: Mod diff atrophy. Code(s): F03.90 - Unspecified dementia, unspecified severity, without behavioral disturbance, psychotic disturbance, mood disturbance, and anxiety Category: Medical (2) Alzheimer dementia: Code(s): G30.9 - Alzheimer's disease, unspecified; F02.80 - Dementia in other diseases classified elsewhere, unspecified severity, without behavioral disturbance, psychotic disturbance, mood disturbance, and anxiety Category: Medical Qualifiers: Alzheimer's disease onset: late onset Dementia severity: moderate Dementia behavioral or psychological symptom: with mood disturbance Qualified Code(s): G30.1 - Alzheimer's disease with late onset; F02.B3 - Dementia in other diseases classified elsewhere, moderate, with mood disturbance (3) Peripheral neuropathy: Code(s): G62.9 - Polyneuropathy, unspecified Category: Medical Qualifiers: Peripheral neuropathy type: polyneuropathy, 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 Donepezil 10 mg a day 2. Memantine 10 mg twice a day 3. Sertraline 50mg one in am 4. EMG/NCS legs 5. Regular leg exercise 6. Labs I discussed the plan to investigate his neuropathy and explained that it would require a nerve test and a blood test. I advised that the blood work could be completed downstairs today. We also discussed the importance of leg strengthening exercises and the recommendation to use a walker to prevent falls, as it would be difficult for his caregiver to prevent a fall otherwise. Orders: Orders NE nerve conduction velocity Today G62.1 - Alcoholic polyneuropathy NE electromyogram (EMG) Today G62.1 - Alcoholic polyneuropathy Creatine Kinase Total Today G62.1 - Alcoholic polyneuropathy Vitamin B12 and Folate Today G62.1 - Alcoholic polyneuropathy Immunofixation Pnl, Serum Today G62.1 - Alcoholic polyneuropathy Medications: New sertraline 50 mg PO DAILY 90 tabs 1RF donepezil 10 mg PO BEDTIME 90 tabs 1RF Refilled memantine 10 mg PO BID 180 tabs 1RF Discontinued sertraline Discontinued Reason: Doctor's Order 25 mg PO DAILY 90 tabs 0RF Coding Level of Care Code Est Pt Level 4 (87631) Diagnoses Multifactorial dementia F03.90 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
--- OUTSIDE RECORDS SUMMARY | 2025-05-18 10:28 | XMS_ITS | Encounter Summary ---
Author Organization [facility] Address [address] [place] [address] Care Team Providers Care Wind Turbine Engineer Name Role Phone Linette Doherty MD Primary Care Prov ider Encounter Details Date Type Department Care Team (Late st Contact Info) Description 05/02/2024 Lab Requisition [facility] - Main Lab [address] [place] [phone] Elizabeth Alarcon NP [address] [facility] [address] [place] [address] Malignant neoplasm of prostate (CMS/HCC V24, CMS/HCC [...] Department Care Team (Late Contact Info) Description 05/20/2025 10:30 AM EST Clinical Support Adult Medicine [address] [phone] 08/31/2025 10:30 AM EDT Office Visit [facility] Hematology Oncology [address] [place] [phone] Delmy Marshall MD [address] [place] [phone] 10/21/2025 9:45 AM EDT Office Visit [facility] [address] [place], [place] [phone] Linette Doherty MD [address] [place], [place] documented as of this encounter Procedures Procedure Name Priority Date/Time Associated Diagnosis Comments PROSTATE SPECIFIC ANTIGEN DIAGNOSTIC Routine 05/02/2024 9:54 AM EST Malignant neoplasm of prostate (CMS/HCC) documented in this encounter Results * Prostate specific antigen diagnostic (05/02/2024 9:54 AM EST) PSA <0.06 0.00 - 4.00 ng/mL LAB CHEMISTRY METHOD 05/02/2024 3:12 PM EST [facility] Blood Venous blood specimen / Unknown 05/02/2024 9:54 AM EST 05/02/2024 1:50 PM EST Narrative [facility] - 05/02/2024 3:12 PM EST The Siemens Advia Centaur Chemiluminescent Immunoassay is used. Results obtained with different assay methods or kits cannot be used interchangeably. Results cannot be interpreted as absolute evidence of the presence or absence of malignant disease. us Elizabeth Alarcon NP LAB BLOOD ORDERABLES Final R esult [facility] [address] [place] [address], [place] [phone] documented in this encounter Visit Diagnoses Diagnosis Malignant neoplasm of prostate (CMS/HCC V24, CMS/HCC V28) Malignant neoplasm of prostate documented in this encounter Care Teams Wind Turbine Engineer Relationship Specialty Start Date End Date Linette Doherty MD [address] [place] [phone] PCP - General Internal Medicine 03/19/24 documented as of this encounter
--- OUTSIDE RECORDS SUMMARY | 2025-05-18 10:28 | XMS_ITS | Clinical Summary ---
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 Active memantine (NAMENDA) 10 mg tablet Take 1 tablet (10 mg total) by mouth 2 (two) times a day. Active donepeziL (ARICEPT) 10 mg tablet Take 1 tablet (10 mg total) by mouth at bedtime. Active ezetimibe (ZETIA) 10 mg tablet TAKE 1 TABLET BY MOUTH EVERY DAY 90 tablet 1 5 Active sertraline (ZOLOFT) 25 mg tablet Take 1 tablet (25 mg total) by mouth 1 (one) time each day. 5 Active apixaban (ELIQUIS) 5 mg tabletIndicatio ns:Atrial flutter, unspecified type ([facility] V24, [facility] V28) Take 1 tablet (5 mg total) by mouth every 12 (twelve) hours. 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 V24, [facility] V28) Take 1 capsule (100 mg total) by mouth 2 (two) times a day. 60 each 1 5 026 Active Twinrix, PF, 720 RAVI unit- 20 mcg/mL injection 5 Active Miebo, PF, 100 % drops INSTILL 1 DROP INTO BOTH EYES FOUR TIMES A DAY Active allopurinoL (ZYLOPRIM) 300 mg tablet Take 1 tablet (300 mg total) by mouth 1 (one) time each day. 5 Active diclofenac (VOLTAREN) 1 % topical gel APPLY 4 GRAMS TOPICALLY 3 TIMES DAILY NEEDED (PAIN, TINGLING SENSATION). 4 Active ciprofloxacin-d exAMETHasone (CIPRODEX) otic suspension PLACE 4 DROPS INTO AFFECTED EAR(S) TWICE DAILY FOR 2 WEEKS 5 Active erythromycin 5 mg/gram (0.5 %) ophthalmic ointment PLEASE SEE ATTACHED FOR DETAILED DIRECTIONS 3 Active allopurinoL (ZYLOPRIM) 300 mg tablet Take 1 tablet (300 mg total) by mouth 1 (one) time each day. 90 each 3 4 025 apixaban (ELIQUIS) 5 mg tablet Take 1 tablet (5 mg total) by mouth every 12 (twelve) hours. 180 each 3 5 025 Discontinu ed(Reorder ) Hospital, Clinic, or Other Facility Administered Medication Ordered Dose Route Frequency Start Date End Date Status cyanocobalamin (VITAMIN B-12) injection 1,000 mcgIndications:B12 deficiency 1000 mcg IM Every 30 days 10/06/2024 04/22/2025 Ended Active Problems Problem Noted Date Diagnosed Date Spinal stenosis, lumbar dionne on, without neurogenic claudication 05/05/2025 Assessment & Plan (05/05/2025 4:47 PM EST): Mr. Momin describes 3 to 4 months of low back pain without radiation to the legs. He says it did not ever limit how far he could walk. He was started on gabapentin and the pain seems to have resolved. He is neurologically intact with some mild confusion. The MRI of the lumbar spine shows multilevel degenerative changes most significant at L2-3 and L3-4 where there is severe canal stenosis and severe bilateral lateral recess stenosis. Fortunately, the patient is better and he says he would not consider any kind of surgical intervention. We talked about physical therapy, acupuncture, chiropractic treatment and yoga as reasonable conservative modalities if his pain was to return. He would follow-up with us in the future on an as needed basis. Alcoholic cirrhosis of liver without ascites 07/2024 Assessment & Plan (04/22/2025 11:42 AM EST): Alcohol use disorder in remission. Last liver LFTs wnl, PLT count stable around 85. US abdomen reported no hepatic masses, moderate splenomegaly. Asymptomatic. Will continue to monitor. Orders: Comprehensive metabolic panel; Future CBC and differential; Future Alzheimer's disease, unspecified (CODE) 04/22/20 Assessment & Plan (04/22/2025 11:42 AM EST): He follows regularly with neurology. Currently on Memantine and Donepezil. Continue to monitor. Mixed hyperlipidemia 12/15/2024 Assessment & Plan (04/22/2025 11:42 AM EST): Last LDL was 76. He is currently on Zetia, he has allergy to statins. Will continue same medication. Encouraged to follow a low-fat diet and exercise regularly. Orders: Comprehensive metabolic panel; Future CBC and differential; Future Assessment & Plan (12/15/2024 9:14 AM EDT): [...] today. Malignant melanoma of torso excluding breast 04/2024 Assessment & Plan (06/16/2024 11:35 AM EST): Patient follows regularly with dermatology, no new lesions. Prostate cancer 01/04/2024 Assessment & Plan (04/22/2025 9:30 AM EST): Follows by oncology regularly. Encouraged to keep the appointments with the specialist. PSA has been stable. Assessment & Plan (06/16/2024 11:35 AM EST): Follows by oncology regularly. Encouraged to keep the appointments with the specialist. PSA has been stable. Atrial flutter 03/27/2023 Assessment & Plan (04/22/2025 9:30 AM EST): Currenly regular. No chest pain, palpitations, shortness of breath or dizziness. Follows with cardio. Encouraged to continue Apixaban. Orders: apixaban (ELIQUIS) 5 mg tablet; Take 1 tablet (5 mg total) by mouth every 12 (twelve) hours. Assessment & Plan (12/15/2024 9:07 AM EDT): Currenly regular. No chest pain, palpitations, shortness of breath or dizziness. Follows with cardio. Encouraged to continue Apixaban. Assessment & Plan (06/16/2024 11:35 AM EST): Currenly regular. No chest pain, palpitations, shortness of breath or dizziness. Follows with cardio. Encouraged to continue Apixaban. 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 Cervical radiculopathy at C5 09/17/2018 Abdominal lymphadenopathy 12/27/2017 Resolved Problems Problem Noted Date Diagnosed Date Resolved Date Other chronic pancreatitis 04/22/2025 1 06/23/2024 Weight loss 03/17/2020 04/22/2025 Carpal tunnel syndrome of right wrist 09/17/2018 04/22/2025 Encounters Date Type Department Care Team Description 05/05/2025 3:00 PM EST Consult Neurosurgery [place] - [address] [place] [address] Jv Swenson PA Spinal stenosis, lumbar region, without neurogenic claudication (Primary Dx) 04/25/2025 Results Follow-Up Adult [address] [phone] Linette Martinez MD 04/22/2025 1:51 PM EST - 04/22/2025 11:59 PM EST Hospital Encounter Radiology Department - [address] [phone] 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 V24, [facility] V28) Discharge Disposition: Home or Self Care 04/22/2025 10:30 AM EST Clinical Support Adult Medicine [address] [phone] B12 deficiency (Primary Dx) 04/22/2025 9:45 AM EST Lab Draw Station [address] Prostate cancer ([facility] V24, 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 leg pain; Other closed fracture of fourth lumbar vertebra, initial encounter ([facility]/HCC V24, [facility]/HCC V28); Prostate cancer (CMS/HCC V24, CMS/HCC V28); Screening for depression 04/22/2025 Telephone Adult [address] [phone] Chaya Parikh MA 04/08/2025 9:00 AM EST Lab Draw [address] Mixed hyperlipidemia; Atrial flutter, unspecified type ([facility]/HCC V24, [facility]/HCC V28) 03/25/2025 10:30 AM EST Clinical Support Adult [address] [phone] B12 deficiency (Primary Dx) 03/02/2025 10:45 AM EDT Office Visit [facility] Hematology Oncology [address] [place] [phone] Delmy Buchanan MD Prostate cancer ([facility]/HCC V24, CMS/HCC V28) (Primary Dx); Malignant melanoma of torso excluding breast ([facility]/HCC V24, CMS/HCC V28) 02/25/2025 10:00 AM EDT Clinical Support Adult [address] [phone] B12 deficiency (Primary Dx) from Last 3 Months Immunizations Immunization Administration Dates Next Due COVID-19 (Pfizer/Comirnaty) 12yo and older 02/18/2023 Hepatitis A-Hepatitis B Adul t (Twinrix) 18yo and older 08/18/2024,03/17/2024,02/15/2024 Influenza Quadravalent, 0.5m l (Fluad) 65yo and older 02/22/2021 Influenza Quadravalent, 0.5m l (Fluzone High-dose) 65yo and older 02/18/2023,02/09/2020 Influenza trivalent, 0.5mL ( Fluad) 65yo and older 03/14/2025 Influenza trivalent, 0.5mL ( Fluzone High-dose) 65yo and older 02/23/2024,03/07/2022,02/21/2019,01/30,02/03/2017,03/09/2016 Pfizer (ages 12 & older) [facility] S-CoV-2 COVID-19, mRNA, LNP-S, robert-sucrose, preservative free 09/20/2021 Pfizer SARS-CoV-2 COVID-19, mRNA, LNP-S, preservative free 02/18/2023,09/20/2021,01/03/2021,07/12,06/21/2020 Pneumococcal conjugate 13 va lent (Prevnar 13, PCV13) 2mo and older 05/19/2020,03/17/2016 Pneumococcal polysaccharide 23 valent (Pneumovax 23) 2yo and older 09/17/2014 Td Tetanus diptheria (Tdvax) 7yo and older 11/17/2020 Surgical History Surgery Date Site/Laterality Comments PROSTATE SURGERY PROCEDURE: HISTORICAL PROSTATE SURGERY TOTAL KNEE ARTHROPLASTY PROCEDURE: SD ARTHRP KNE CONDYLE&PLATU MEDIAL&LAT COMPARTMENTS TOTAL KNEE ARTHROPLASTY 05/21/2014 - 05/20/2015 Bilateral CARPAL TUNNEL RELEASE Right TYMPANOPLASTY CATARACT EXTRACTION Bilateral Medical History Medical History Date Comments Adenocarcinoma of prostate ( [facility] V24, [facility] V28) 12/06/2017 DX:Adenocarcinoma of prostat e ([facility]); COMMENT: S/p prostate surgery Atrial flutter ([facility] V24, CMS/[facility] V28) 04/04/2017 DX:Atrial flutter ([facility]); COM MENT: S/p AV node ablation Constipation 04/12/2016 DX:Constipation Dupuytren's contracture 04/12/2016 DX:Juan tren's contracture GERD (gastroesophageal reflux disease) 12/06/2017 DX:GERD (gastroesophageal reflux disease) Gout 12/06/2017 DX:Gout History of basal cell carcinoma of skin 6 DX:History of basal cell carcinoma of skin Hyperlipidemia 12/06/2017 DX:Hyperlipidemi a Hypertension 12/06/2017 DX:Hypertension Thrombocytopenia ([facility] V24) 11/29/2016 D X:Thrombocytopenia (HCC) Tubular adenoma 04/04/2017 DX:Tubular adeno ma Dementia (CMS/HCC V24, CMS/HCC V28) Other chronic pancreatitis ( [facility]/HCC V24, [facility] V28) 04/22/2025 Carpal tunnel syndrome of right wrist 09/17/2018 Arthritis Family History Medical History Relation Name Comments Other: Hodgkins Father Colon cancer Mother Relation Name Status Comments Father Mother Social History Tobacco Use Types Packs/Day Years Used Date Smoking Tobacco: Former Passive Smoke Exposure: Past Smokeless Tobacco: Never Comments:Began 1955, quit Alcohol Use Standard Drinks/Week Comments Yes 0 [...] Orientation Straight 04/06/2024 10 :20 AM EST Last Filed Vital Signs Vital Sign Reading Time Taken Comments Blood Pressure 106/64 04/22/2025 8:37 AM EST Pulse 88 04/22/2025 8:37 AM EST Temperature 36.4 C (97.5 F) 04/22/2025 8:37 AM EST Respiratory Rate 14 04/22/2025 8:37 AM EST Oxygen Saturation 99% 04/22/2025 8:37 AM EST Inhaled Oxygen Concentration - - Weight 99.8 kg (220 lb) 05/05/2025 2:46 PM EST Height 188 cm (6' 2 ) 05/05/2025 2:46 PM EST Body Mass Index 28.25 05/05/2025 2:46 PM EST Plan of Treatment Upcoming Encounters Date Type Department Care Team (Late st Contact Info) Description 05/20/2025 10:30 AM EST Clinical Support Adult Medicine [address] [phone] 08/31/2025 10:30 AM EDT Office Visit [facility] Hematology Oncology [address] [place] [address] Delmy Marshall MD [address] [place] [address] 10/21/2025 9:45 AM EDT Office Visit Adult Medicine [facility] [address] [place] [address] Linette Doherty MD [address] [place] [address] Health Maintenance Due Date Last Done Comments Zoster Vaccines (1 of 2) 01[birth year]28/1959 RSV Immunization Adult Patients (1 - 1-dose 75+ series) 01/28/2015 Skin Cancer Screening 10/26/2024 Social Influencers of Health Screening 06/13/2025 06/13/2024 Falls Risk Assessment 06/16/2025 06/16/2024 Medicare Annual Wellness Visit 06/16/2025 06/16/2024 COVID-19 Vaccine (10 - Pfizer risk 2024- season) 2025 03/14/2025, 02/23/2024, 02/18/2023, Additional history exists Hypertension/CHF/CAD Annual BMP Blood Test 04/08/2026 04/08/2025, 12/15/2024, 11/21/2023 Cholesterol Screening (Lipid Panel) 04/08/2030 04/08/2025, 11/21/2023 DTaP,Tdap,and Td Vaccines (2 - Td or Tdap) 11/17/2030 11/17/2020 Pneumococcal Vaccine: 50+ Years Completed 05/19/2020, 03/17/2016, 09/17/2014 Hepatitis A Vaccines Completed 08/18/2024, 03/17/2024, 02/15/2024 Hepatitis B Vaccines Completed 08/18/2024, 03/17/2024, 02/15/2024 Influenza Vaccine Completed 03/14/2025, , 02/18/2023, Additional history exists Depression Screening Completed 04/22/2025 HIB Vaccines Aged Out No longer eligi [...] Procedure Name Priority Date/Time Associated Diagnosis Comments MR LUMBAR SPINE WO CONTRAST Routine 04/22/2025 3:01 PM EST 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 without leg pain Other closed fracture of fourth lumbar vertebra, initial encounter ([facility]/HCC V24, CMS/HCC V28) PROSTATE SPECIFIC ANTIGEN DIAGNOSTIC Routine 04/22/2025 9:29 AM EST Prostate cancer (CMS/HCC V24, CMS/HCC V28) CBC WITH AUTO DIFFERENTIAL Routine 04/08/2025 9:30 AM EST Mixed hyperlipidemia Atrial flutter, unspecified type (CMS/HCC V24, [facility]/HCC V28) COMPREHENSIVE METABOLIC PANEL Routine 04/08/2025 9:30 AM EST Mixed hyperlipidemia Atrial flutter, unspecified type ([facility]/HCC V24, [facility]/HCC V28) CBC AND DIFFERENTIAL Routine 04/08/2025 9:30 AM EST Mixed hyperlipidemia Atrial flutter, unspecified type (CMS/HCC V24, [facility]/HCC V28) LIPID PANEL WITH REFLEX TO DIRECT LDL Routine 04/08/2025 9:30 AM EST Mixed hyperlipidemia Atrial flutter, unspecified type (CMS/HCC V24, CMS/HCC V28) EXTERNAL XRAY REPORT 02/24/2025 EXTERNAL XRAY REPORT 02/24/2025 EXTERNAL XRAY REPORT 02/24/2025 from Last 3 Months Results * MR Lumbar Spine wo Contrast (04/22/2025 3:01 PM EST) Anatomical Region Laterality Modality L-spine, Spine Magnetic Resonan ce 04/24/2025 5:04 PM EST Impressions 04/24/2025 5:10 PM EST Impression: Multilevel degenerative changes of the lumbar spine with severe spinal canal stenosis at L2-L3 and L3-L4. -------- FINAL REPORT -------- Dictated By: David Sheth Dictated Date: 04/24/2025 17:04 ET Assigned Physician: David Sheth Reviewed and Electronically Signed By: David Sheth Signed Date: 04/24/2025 17:10 ET Workstation ID: [id number] Transcribed By: Self Edit Transcribed Date: 04/24/2025 17:04 ET Narrative 04/24/2025 5:10 PM EST MRI LUMBAR SPINE Clinical Statement: Chronic back pain Comparison: None Technique: Multiplanar, multisequence MRI images of the lumbar spine were obtained without intravenous contrast. Findings: There is normal lumbar lordosis. There is preservation of vertebral body height. There is disc height loss at L2- L3, L3-L4, L4-L5 and L5-S1 with disc desiccation at multiple levels. Markedly heterogeneous vertebral body marrow signal consistent with degenerative changes. There is grade 1 retrolisthesis of L2 on L3 and L3 on L4. Cord signal is normal. The conus medullaris is normal in signal characteristics and morphology and terminates at the L1-2 level. T12-L1: No neuroforaminal or spinal canal stenosis seen on the sagittal view L1-L2: Broad-based disc bulge, facet arthropathy and hypertrophy, ligamentum flavum hypertrophy with moderate right and severe left neuroforaminal stenosis and mild spinal canal stenosis L2-L3: Broad-based disc bulge and central disc protrusion, facet arthropathy and hypertrophy, ligamentum flavum hypertrophy with severe bilateral neuroforaminal stenosis and severe spinal canal stenosis. There is severe narrowing of the bilateral neural foramen. L3-L4: Broad-based disc bulge, facet arthropathy and hypertrophy, ligamentum flavum hypertrophy with bilateral severe neuroforaminal stenosis and severe spinal canal stenosis. There is severe bilateral neural foramen narrowing. L4-L5: Broad-based disc bulge and central/left paracentral disc herniation, facet arthropathy and hypertrophy, ligamentum flavum hypertrophy with severe left and moderate right neuroforaminal stenosis and moderate spinal canal stenosis L5-S1: Broad-based disc bulge and central disc protrusion with extrusion extending superiorly measuring 0.3 cm, facet arthropathy and hypertrophy, ligamentum flavum hypertrophy with moderate bilateral neuroforaminal stenosis and moderate spinal canal stenosis Procedure Note David Sheth MD - 04/24/2025 MRI LUMBAR SPINE Clinical Statement: Chronic back pain Comparison: None Technique: Multiplanar, multisequence MRI images of the lumbar spine wereobtained without intravenous contrast. Findings: There is normal lumbar lordosis. There is preservation ofvertebral body height. There is disc height loss at L2-L3, L3-L4, L4-L5and L5-S1 with disc desiccation at multiple levels. Markedlyheterogeneous vertebral body marrow signal consistent with degenerativechanges. There is grade 1 retrolisthesis of L2 on L3 and L3 on L4. Cordsignal is normal. The conus medullaris is normal in signalcharacteristics and morphology and terminates at the L1-2 level. T12-L1: No neuroforaminal or spinal canal stenosis seen on the sagittalview L1-L2: Broad-based disc bulge, facet arthropathy and hypertrophy,ligamentum flavum hypertrophy with moderate right and severe leftneuroforaminal stenosis and mild spinal canal stenosis L2-L3: Broad-based disc bulge and central disc protrusion, facetarthropathy and hypertrophy, ligamentum flavum hypertrophy with severebilateral neuroforaminal stenosis and severe spinal canal stenosis. Thereis severe narrowing of the bilateral neural foramen. L3-L4: Broad-based disc bulge, facet arthropathy and hypertrophy,ligamentum flavum hypertrophy with bilateral severe neuroforaminalstenosis and severe spinal canal stenosis. There is severe bilateralneural foramen narrowing. L4-L5: Broad-based disc bulge and central/left paracentral discherniation, facet arthropathy and hypertrophy, ligamentum flavumhypertrophy with severe left and moderate right neuroforaminal stenosisand moderate spinal canal stenosis L5-S1: Broad-based disc bulge and central disc protrusion with extrusionextending superiorly measuring 0.3 cm, facet arthropathy and hypertrophy,ligamentum flavum hypertrophy with moderate bilateral neuroforaminalstenosis and moderate spinal canal stenosis IMPRESSION: Impression: Multilevel degenerative changes of the lumbar spine with severe spinalcanal stenosis at L2-L3 and L3-L4. -------- FINAL REPORT -------- Dictated By: David Sheth Dictated Date: 04/24/2025 17:04 ET Assigned Physician: David Sheth Reviewed and Electronically Signed By: David Sheth Signed Date: 04/24/2025 17:10 ET Workstation ID: [id number] Transcribed By: Self Edit Transcribed Date: 04/24/2025 17:04 ET Linette Doherty MD IMG MRI PROCEDURES Final Result * Prostate specific antigen diagnostic (04/22/2025 9:29 AM EST) PSA 0.09 0.00 - 4.00 ng/mL 04/22/2025 12:22 PM EST [facility] Blood Venous blood specimen / Unknown Venipuncture / Unknown 04/22/2025 9:29 AM EST 04/22/2025 9:29 AM EST Narrative [facility] - 04/22/2025 12:22 PM EST The Siemens [employer] IM Chemiluminescent Immunoassay is used. Results obtained with different assay methods or kits cannot be used interchangeably. Results cannot be interpreted as absolute evidence of the presence or absence of malignant disease. Delmy Marshall MD LAB BLOOD ORDERABLE S Final Result [facility] [address] [place] [address], * (ABNORMAL) Lipid panel with reflex to direct LDL (04/08/2025 9:30 AM EST) Cholesterol 136 0 - 200 mg/dL 04/08/2025 4:07 PM EST [facility] Triglycerides 104 0 - 150 mg/dL 04/08/2025 4:07 PM [facility] HDL 39(L) >=40 mg/dL 04/08/2025 4:07 PM [facility] LDL Calculated 76 0 - 100 mg/dL 04/08/2025 4:07 PM [facility] Comment:Estimated LDL Calcul ated using equation: Total cholesterol - HDL cholesterol - (Triglycerides/5) VLDL Cholesterol Lavell 20.8 mg/dL 04/08/2025 4:07 PM [facility] Non HDL Chol. (LDL+VLDL) 97 <145 mg/dL 04/08/2025 4:07 PM [facility] Chol/HDL Ratio 3.5 0.0 - 4.4 04/08/2025 4:07 PM [facility] Blood Venous blood specimen / Unknown Venipuncture / Unknown 04/08/2025 9:30 AM EST 04/08/2025 9:30 AM EST us Linette Doherty MD LAB BLOOD ORDERABL ES Final Result [facility] [address] [place] [address], [place] [phone] * (ABNORMAL) CBC auto differential (04/08/2025 9:30 AM EST) WBC 7.6 4.8 - 10.8 K/mcL LAB HEMETOLOGY METHOD 04/08/2025 12:59 PM [facility] RBC 4.50 4.50 - 5.50 M/mcL LAB HEMETOLOGY METHOD 04/08/2025 12:59 PM [facility] Hemoglobin 14.1 13.5 - 17.5 g/dL LAB HEMETOLOGY METHOD 04/08/2025 12:59 PM [facility] Hematocrit 42.7 42.0 - 54.0 % LAB HEMETOLOGY METHOD 04/08/2025 12:59 PM [facility] MCV 94.3 79.0 - 98.0 FL LAB HEMETOLOGY METHOD 04/08/2025 12:59 PM [facility] MCH 31.1 27.0 - 32.0 pcg LAB HEMETOLOGY METHOD 04/08/2025 12:59 PM [facility] MCHC 33.0 32.0 - 37.0 g/dL LAB HEMETOLOGY METHOD 04/08/2025 12:59 PM [facility] RDW 13.9 11.0 - 15.0 % LAB HEMETOLOGY METHOD 04/08/2025 12:59 PM [facility] Platelets 87(L) 130 - 400 K/mcL LAB HEMETOLOGY METHOD 04/08/2025 12:59 PM [facility] Comment:previously verified by slide MPV 12.6(H) 7.0 - 11.0 FL LAB HEMETOLOGY METHOD 04/08/2025 12:59 PM [facility] NRBC 0.0 <1.0 % LAB HEMETOLOGY METHOD 04/08/2025 12:59 PM [facility] NRBC Absolute 0.00 <0.10 K/mcL LAB HEMETOLOGY METHOD 04/08/2025 12:59 PM [facility] Neutrophils Relative 76.1 % LAB HEMETOLOGY METHOD 04/08/2025 12:59 PM [facility] Lymphocytes Relative 14.5 % LAB HEMETOLOGY METHOD 04/08/2025 12:59 PM [facility] Monocytes Relative 8.1 % LAB HEMETOLOGY METHOD 04/08/2025 12:59 PM [facility] Eosinophils Relative 0.3 % LAB HEMETOLOGY METHOD 04/08/2025 12:59 PM [facility] Basophils Relative 0.3 % LAB HEMETOLOGY METHOD 04/08/2025 12:59 PM EST [facility] Immature Granulocytes Relative 0.7 % LAB HEMETOLOGY METHOD 04/08/2025 12:59 PM [facility] Neutrophils Absolute 5.82 1.50 - 7.00 K/mcL LAB HEMETOLOGY METHOD 04/08/2025 12:59 PM [facility] Lymphocytes Absolute 1.11 1.00 - 5.00 K/mcL LAB HEMETOLOGY METHOD 04/08/2025 12:59 PM [facility] Monocytes Absolute 0.62 0.20 - 1.00 K/mcL LAB HEMETOLOGY METHOD 04/08/2025 12:59 PM [facility] Eosinophils Absolute 0.02 0.00 - 0.50 K/mcL LAB HEMETOLOGY METHOD 04/08/2025 12:59 PM [facility] Basophils Absolute 0.02 0.00 - 0.20 K/mcL LAB HEMETOLOGY METHOD 04/08/2025 12:59 PM [facility] Immature Granulocytes Absolute 0.05(H) 0.00 - 0.03 K/mcL LAB HEMETOLOGY METHOD 04/08/2025 12:59 PM [facility] Blood Venous blood specimen / Unknown Venipuncture / Unknown 04/08/2025 9:30 AM EST 04/08/2025 9:30 AM EST us Linette Doherty MD LAB BLOOD ORDERABL ES Final Result [facility] [address] [place] [address], * (ABNORMAL) Comprehensive metabolic panel (04/08/2025 9:30 AM EST) Sodium 142 133 - 145 mmol/L 04/08/2025 4:07 PM EST [facility] Potassium 4.3 3.5 - 5.5 mmol/L 04/08/2025 4:07 PM [facility] Chloride 105 96 - 110 mmol/L 04/08/2025 4:07 PM [facility] CO2 25 21 - 32 mmol/L 04/08/2025 4:07 PM [facility] Anion Gap 12(H) 3 - 11 04/08/2025 4:07 PM [facility] Glucose 107(H) 70 - 100 mg/dL 04/08/2025 4:07 PM [facility] BUN 17 5 - 25 mg/dL 04/08/2025 4:07 PM [facility] Creatinine 1.11 0.70 - 1.30 mg/dL 04/08/2025 4:07 PM [facility] eGFR 65 >=60 mL/min/1. 73m2 04/08/2025 4:07 PM [facility] Comment:Calculation based on the Chronic Kidney Disease Epidemiology Collaboration (CKD-EPI) equation refit without adjustment for race. BUN/Creatinine Ratio 15.3 04/08/2025 4:07 PM [facility] Calcium 8.5 8.5 - 10.5 mg/dL 04/08/2025 4:07 PM [facility] AST (SGOT) 15 10 - 42 unit/L 04/08/2025 4:07 PM [facility] ALT (SGPT) 8(L) 10 - 60 unit/L 04/08/2025 4:07 PM [facility] Alkaline Phosphatase 73 42 - 121 unit/L 04/08/2025 4:07 PM [facility] Total Protein 6.0 6.0 - 8.0 g/dL 04/08/2025 4:07 PM [facility] Albumin 3.7 3.2 - 5.0 g/dL 04/08/2025 4:07 PM EST [facility] Total Bilirubin 0.8 0.0 - 1.4 mg/dL 04/08/2025 4:07 PM EST [facility] Blood Venous blood specimen / Unknown Venipuncture / Unknown 04/08/2025 9:30 AM EST 04/08/2025 9:30 AM EST Linette Doherty MD LAB BLOOD ORDERABL ES Final Result [facility] [address] [place] [address], * External Xray Report (02/24/2025) Only the most recent of3 resultswithin the time period is included. Anatomical Region Laterality Modality Radiographic Sallie ging Provider [facility] XR PROCEDURES Final Result from Last 3 [place] [id number] [facility] Care Teams Metal Furnace Operator Relationship Specialty Start Date End Date Linette Doherty MD [address] [place] [phone] PCP - General Internal Medicine 03/19/24
--- OUTSIDE RECORDS SUMMARY | 2025-05-18 10:28 | XMS_ITS | Clinical Summary ---
Author Organization [facility] Prior to 10/18/[address] [place] [id number] Care Team Providers Care Website/Blog Editor Name Role Phone Linette Gao MD Primary [...] age to complete this topic Care Teams Website/Blog Editor Relationship Specialty Start Date End Date Linette Gao MD [address] [place] [address] PCP - General Internal Medicine 03/16/22
--- OUTSIDE RECORDS SUMMARY | 2025-05-18 10:28 | XMS_ITS | Encounter Summary ---
Author Organization [facility] Address [address] [place] [address] Care Team Providers Care Appliance Service Representative Name Role Phone Linette Doherty MD Primary Care Prov ider Reason for Referral * Consultation (Routine) - Authorized Specialty Diagnoses / Procedures Referred By Contchris t Referred To Contact Neurosurgery Diagnoses Spinal stenosis of lumbar region with neurogenic claudication Linette Doherty MD [address] [place] [address] Phone: tel: fax: Neurosurgery [address] [place] [address] Phone: tel: fax: Referral ID Status Reason Start Date Expiration Date Visits Requested Visits Authorized [id number] Authorized Specialty Services Required 04/25/2025 04/25/2026 1 1 Encounter Details Date Type Department Care Team ([facility] st Contact Info) Description 04/25/2025 Results Follow-Up Adult Medicine [address] [phone] Linette Doherty MD [address] [place] [address] Social History Tobacco Use Types Packs/Day Years [...] care for your loved ones. For example, early childhood education specialist or elderly care for an older adult? [...] 10:30 AM EST Clinical Support Adult Medicine [address] [phone] 08/31/2025 10:30 AM EDT Office Visit [facility] Hematology Oncology [address] [place] [phone] Delmy Marshall MD [address] [place] [phone] 10/21/2025 9:45 AM EDT Office Visit [address] [phone] Linette Doherty MD [address] [place] [address] Scheduled Referrals Name Type Priority Associated Diagnoses Orde r Schedule Ambulatory referral to Neurosurgery Outpatient Referral Routine Spinal stenosis of lumbar region with neurogenic claudication 1 Occurrences starting 04/25/2025 until 04/25/2026 documented as of this encounter Visit Diagnoses Diagnosis Spinal stenosis of lumbar region with neurogenic claudication- Primary documented in this encounter Additional Health Concerns Assessment Noted Time PHQ-9 Depression Total Score: 8 04/22/20 25 8:44 AM EST documented as of this encounter Care Teams Appliance Service Representative Relationship Specialty Start Date End Date Linette Doherty MD [address] [place] [address] PCP - General Internal Medicine 03/19/24 documented as of this encounter
== END 2025-05-18 10:42 | disposition home or self-care (01) ==
LOC: HO.HSM 09:47
PROVIDERS: PCP Internal Medicine; Visit Provider Psychiatry & Neurology Neurology
DX: F03.90 Unspecified dementia, unspecified severity, without behavioral disturbance, psychotic disturbance, mood disturbance, and anxiety (principal); G30.1 Alzheimer's disease with late onset; F02.B3 Dementia in other diseases classified elsewhere, moderate, with mood disturbance; G62.1 Alcoholic polyneuropathy
CPT/HCPCS: 99214